=== PATIENT | male | born 1955 | race Two or more races ===

== ENCOUNTER 2023-08-25 12:43 | Emergency (ER) | payer OTHER ==
[~2023-08-25] VITALS: Ht 182.9 cm; Wt 100.0 kg
[2023-08-25 12:52] VITALS: TEMP 97.5
[2023-08-25] MEDS ORDERED: ASPI81TA87 PO (13:03)
[2023-08-25] MEDS ORDERED: AMLO5TAB66 PO (13:03)
[2023-08-25] MEDS ORDERED: FURO40 PO (13:03)
[2023-08-25] MEDS ORDERED: DORZ10DR10 OU (13:03)
[2023-08-25] MEDS ORDERED: MAG30ORA11 PO (13:03)
[2023-08-25] MEDS ORDERED: CHOL25TA4 PO (13:03)
[2023-08-25] MEDS ORDERED: HYDR10TA31 PO (13:03)
[2023-08-25] MEDS ORDERED: TAMS0.4C94 PO (13:03)
[2023-08-25] MEDS ORDERED: FERR-82 PO (13:03)
[2023-08-25] MEDS ORDERED: FAMO20 PO (13:03)
[2023-08-25 17:23] LABS: BASOPHILS % (AUTO) 0.9 % (0.0-2.0); EOSINOPHILS % (AUTO) 4.3 % (1.0-6.0); HEMATOCRIT 35.3 % (41-53); HEMOGLOBIN 11.4 g/dL (13.5-17.5); LYMPHOCYTES # (AUTO) 2.1 K/uL (1.0-4.8); LYMPHOCYTES % (AUTO) 28.5 % (22.0-44.0); MEAN CORPUSCULAR HEMOGLOBIN 25.7 pg (26.0-34.0); MEAN CORPUSCULAR HGB CONC 32.3 G/dL (31.0-37.0); MEAN CORPUSCULAR VOLUME 80 fL (80-100); MONOCYTES # (AUTO) 0.8 K/uL (0.1-1.0); NEUTROPHILS # (AUTO) 4.1 K/uL (1.8-7.7); NEUTROPHILS % (AUTO) 55.3 % (40.0-70.0); PLATELET COUNT (AUTO) 450 K/uL (150-450); RED BLOOD CELL COUNT(AUTO) 4.44 MIL/uL (4.50-5.90); RED CELL DISTRIBUTION WIDTH 15.7 % (11.5-14.5); WHITE BLOOD COUNT (AUTO) 7.5 K/uL (4.5-11.0)
[2023-08-25 17:30] LABS: CALCIUM, TOTAL 9.2 mg/dL (8.8-10.5); CREATININE 1.22 mg/dL (0.60-1.30); POTASSIUM 4.3 mmol/L (3.5-5.1)
[2023-08-25 18:15] VITALS: BP 116/68; PULSE 84; RESP 18
== END 2023-08-25 18:52 | disposition home or self-care (01) ==
LOC: EMS 12:43
DX: M79.89 Other specified soft tissue disorders (principal); I87.2 Venous insufficiency (chronic) (peripheral); Z88.5 Allergy status to narcotic agent
CPT/HCPCS: 80048; 85025; 93971; 99284